=== PATIENT | female | born 1955 | race African-American/Black ===

== ENCOUNTER 2020-09-08 07:11 | Emergency (ER) | payer BC ==
[~2020-09-08] VITALS: Ht 165.1 cm; Wt 104.3 kg
[2020-09-08 07:13] VITALS: BP 202/106
[2020-09-08] MEDS ORDERED: HYDROCHLOROTHIA25 M2 PO (07:17)
[2020-09-08 07:30] LABS: ABSOLUTE BASOPHILS 0.1 thou/uL (0.0-0.2); ABSOLUTE EOSINOPHILS 0.2 thou/uL (0.0-0.7); ABSOLUTE MONOCYTES 0.5 thou/uL (0.0-1.2); ABSOLUTE NEUTROPHILS 2.1 thou/uL (1.6-8.1); BASOPHILS 1.3 %; EOSINOPHILS 3.3 %; HEMATOCRIT 41.6 % (37.0-47.0); HEMOGLOBIN 13.8 gm/dL (12.0-15.0); LYMPHOCYTES 41.3 %; MCHC 33.1 g/dL (28.0-37.0); MCV 87.7 fL (80.0-100.0); MONOCYTES 10.3 %; MPV 9.1 fl. (7.2-11.1); NUCLEATED RBCS 0 /100WBC; PLATELET COUNT* 168 thou/uL (150-400); POLYS 43.8 %; RBC 4.74 mil/uL (4.20-5.00); RDW-CV 13.9 % (10.5-14.5); WBC 4.7 thou/uL (4.0-11.0)
[2020-09-08 07:37] LABS: CALCIUM 8.9 mg/dL (8.5-10.1); CREATININE 1.3 mg/dL (0.6-1.3); POTASSIUM 3.3 mmol/L (3.5-5.1)
[2020-09-08 07:47] LABS: ALBUMIN 3.4 g/dL (3.4-5.0); MAGNESIUM 1.7 mg/dL (1.8-2.4); TOTAL BILIRUBIN 0.6 mg/dL (<0.1-1.0); TOTAL PROTEIN 7.4 g/dL (6.4-8.2)
--- NOTE | 2020-09-08 10:13 | NUR ---
CALLED [facility]SF[facility], STATES STILL WAITING ON [facility] RM ASSIGNMENT AND WILL NOTIFY [facility] WHEN THERE IS A BED ASSIGNMENT READILY AVAILABLE
--- NOTE | 2020-09-08 13:19 | EKG ---
[place] [address] ELECTROCARDIOGRAM REPORT Name: JACKIE OCONNOR Room: [facility]#: [id number] Admission: 09/08/20 Attend Phys: Discharge: Date of : 57 Date of Service: 09/08/20714 Report #: [id number] THIS REPORT FOR: //name// [facility] ED Test Date: 2020-09-08 Test Time: 07:15:26 Pat Name: JACKIE OCONNOR Department: Room: 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: : [id number] Requested By: Cm Flores Order Number: [id number] MD: Jayson Gil Measurements Intervals [place] Rate: 73 P: 67 CO: 150 QRS: -51 QRSD: 93 T: 124 QT: 371 QTc: 409 Interpretive Statements Sinus rhythm Multiform ventricular premature complexes Left anterior fascicular block Abnormal R-wave progression, late transition LVH with secondary repolarization abnormality No previous ECG available for comparison Electronically Signed On 09-08-2020 13:19:03 APPLICATIONS SUPPORT LEAD by Jayson Gil [email or web address] <ELECTRONICALLY SIGNED> By: Jayson Gil MD, FAC 09/08/20 1319 4 4 Jayson Gil MD, [facility] /EPI
[2020-09-08 15:26] VITALS: BP 163/91
== END 2020-09-08 15:29 | disposition short-term general hospital (02) ==
LOC: M.ERS 07:11 → M.TBA-ER 09:03 → M.ERS 09:03
PROVIDERS: Emergency Medicine Emergency Medical Services
DX: R07.89 Other chest pain (principal); Z20.828 Contact with and (suspected) exposure to other viral communicable diseases; I10 Essential (primary) hypertension; Z79.899 Other long term (current) drug therapy